=== PATIENT | female | born 1970 ===

== ENCOUNTER 2022-05-27 08:30 | Inpatient (IN) | payer OTHER ==
[~2022-05-27] VITALS: Ht 15.2 cm; Wt 5.0 kg
== END 2022-06-04 13:11 | disposition home or self-care (01) | DRG 331 ==
LOC: O/R 06-02 05:24 → SURG 06-02 05:24
PROVIDERS: ADMIT Colon & Rectal Surgery; ATTEND Colon & Rectal Surgery
PROC: 0DBP4ZZ Excision of Rectum, Percutaneous Endoscopic Approach (ICD-10-PCS; 2022-06-02)
PROC: 0DJD8ZZ Inspection of Lower Intestinal Tract, Via Natural or Artificial Opening Endoscopic (ICD-10-PCS; 2022-06-02)
PROC: 0DTN4ZZ Resection of Sigmoid Colon, Percutaneous Endoscopic Approach (ICD-10-PCS; principal; 2022-06-02 07:00)
DX: K57.32 Diverticulitis of large intestine without perforation or abscess without bleeding (principal); Z20.822 Contact with and (suspected) exposure to COVID-19